=== PATIENT | male | born 1975 | race Caucasian/White ===

== ENCOUNTER 2016-08-08 00:20 | Inpatient (IN) | payer OTHER ==
[2016-08-08 01:37] LABS: Benzodiazepine Urine Screen None Detected (None Detect)
--- NOTE | 2016-08-08 01:41 | ED ---
Jeri Johansen Erika, scribed for Guerrero Bustillos MD on 08/08/16 at 0057 . Substance Abuse/Use - HPI Summary HPI Summary: Patient is a 40-year-old male BIBA to the ED with a CC of overdose. Per EMS, 911 was called with a CC of nosebleed. When they arrived, pt was apneic and surrounded by vomit. Pt had a pulse. Pt's O2 sats were around 40%, so they bagged him and got him up to 90%. Pt was not intubated. They state they first gave him 2 of nasal narcan, which did not affect symptoms. Pt was then given 2 of IV narcan, and within seconds became alert and oriented. When asked which drugs he took, pt reports "I'm not sure" and states "I drank." LEVEL 5 CAVEAT - PT UNABLE TO PROVIDE HISTORY - History Of Current Complaint Stated Complaint: OVERDOSE/UNRESPONSIVE Time Seen by Provider: 08/08/16 00:42 Hx Obtained From: Patient, EMS Hx From Patient Unobtainable Due To: Extremis Severity Initially: Severe Severity Currently: Moderate Aggravating Factor(s): Nothing Alleviating Factor(s): Other - Narcan by EMS Associated Signs And Symptoms: Vomiting - Allergies/Home Medications Allergies/Adverse Reactions: Allergies Allergy/AdvReac Type Severity Reaction Status Date / Time Erythromycin Allergy Severe Hives Verified 12/05/14 13:52 Penicillins Allergy Severe Hives Verified 12/05/14 13:52 PMH/Surg Hx/FS Hx/Imm Hx Infectious Disease History: Denies: Hx Clostridium Difficile, Hx Hepatitis, Hx Human Immunodeficiency Virus (HIV), Hx of Known/Suspected MRSA, Hx Shingles, Hx Tuberculosis, Traveled Outside the [place] in Last 30 Days - Family History Family History: LEVEL 5 CAVEAT - PT UNABLE TO PROVIDE HISTORY - Social History Alcohol Use: Rare Hx Substance Use: Yes - Unkown type Hx Tobacco Use: Yes Smoking Status (MU): Light Every Day Tobacco Smoker Type: Cigarettes, eCigarettes Amount Used/How Often: 1/2 ppd Review of Systems - ROS Summary Review of Systems Summary: LEVEL 5 CAVEAT - PT UNABLE TO PROVIDE HISTORY Positive: Epistaxis Respiratory: Other - Apneic on EMS arrival Positive: Vomiting All Other Systems Reviewed And Are Negative: No Physical Exam Triage Information Reviewed: Yes Vital Signs On Initial Exam: Temp Pulse Resp BP Pulse Ox 98.0 F 138 18 132/100 92 08/08/16 01:19 08/08/16 00:48 08/08/16 00:48 08/08/16 00:48 08/08/16 00:48 Vital Signs Reviewed: Yes Completion Of Physical Exam Limited Due To: Level 5 - PT UNABLE TO PROVIDE HISTORY Appearance: Positive: No Pain Distress - thrashing about intermittently Skin: Positive: Warm Head/Face: Positive: Normal Head/Face Inspection Eyes: Positive: JV Neck: Positive: Supple Respiratory/Lung Sounds: Positive: Breath Sounds Present Cardiovascular: Positive: Normal Abdomen Description: Positive: Nontender, Soft Bowel Sounds: Positive: Present Neurological: Positive: Sensory/Motor Intact Psychiatric: Positive: Anxious Diagnostics - Vital Signs Vital Signs Temp Pulse Resp BP Pulse Ox 08/08/16 01:19 98.0 F 08/08/16 00:48 9.0 F 138 18 132/100 92 - Laboratory Lab Results: Lab Results 08/08/16 Range/Units 01:00 Urine Opiates Screen Presumptive positive H (None Detect) Ur Barbiturates Screen None detected (None Detect) Ur Phencyclidine Scrn None detected (None Detect) Ur Amphetamines Screen Presumptive positive H (None Detect) U Benzodiazepines Scrn None detected (None Detect) Urine Cocaine Screen None detected (None Detect) U Cannabinoids Screen None detected (None Detect) Result Diagrams: 08/08/16 06:10 Lab Statement: Any lab studies that have been ordered have been reviewed, and results considered in the medical decision making process. - Radiology CXR Xray Interpretation: Positive (See Comments) - Bilateral fluffy infiltrates Radiology Interpretation Completed By: ED Physician - EKG 00:27 Cardiac Rate: Tachycardia - at 129 bpm EKG Rhythm: Sinus Tachycardia Re-Evaluation - Re-Evaluation First Eval Re-Evaluation Time: 02:30 Change: Unchanged Second Eval Re-Evaluation Time: 04:00 Change: Worse Comment: Difficulty breathing Course/Dx - Course Assessment/Plan: A 40 y/o M is BIBA to the ED with opioid overdose. Pt was treated with Narcan by EMS. Urine toxicology reveals positive opiates and amphetamines. Serum alcohol <10. Pt is moaning throughout his observation in the ED, and is given Ativan. Pt had difficulty breathing in the ED, so CXR and blood gas were ordered. CXR shows bilateral fluffy infiltrates. Blood gas reveals pO2 of 44. Patient care discussed with Dr. Romero who admits pt for further work up and management. - Diagnoses Provider Diagnoses: Opiate overdose, Respiratory failure - Physician Notifications Discussed Care Of Patient With: Dr. Romero (hospitalist) at 04:33 - agrees to admit Instructed by Provider To: Admit As Inpatient - Critical Care Time Critical Care Time: 75-104 min Discharge - Discharge Plan Condition: Critical Disposition: ADMITTED TO [facility] documentation as recorded by the Jeri hudson Erika accurately reflects the service I personally performed and the decisions made by me, Guerrero Bustillos MD.
[2016-08-08 02:12] LABS: Alcohol < 10 mg/dL (<10)
[2016-08-08] MEDS ORDERED: LORazepam INJ* 2 MG/ML 1 ML VIAL IM ONE (03:29)
[2016-08-08] MEDS ORDERED: LORazepam INJ* 2 MG/ML 1 ML VIAL IV PUSH ONE ×2 (03:56→04:28)
[2016-08-08 04:23] LABS: PCO2 Arterial 44 mmHg (35-45)
[2016-08-08] MEDS ORDERED: Furosemide IV* 10 MG/ML 10 ML VIAL (100 MG) IV ONE (04:28)
[2016-08-08] MEDS ORDERED: cefTRIAXone(*) 1 GM in NS 0.9% 50 ML* 50 ML IVPB ONE (04:29)
[2016-08-08] MEDS ORDERED: Furosemide IV* 10 MG/ML VIAL (40 MG) ONE (04:51)
[2016-08-08] MEDS ORDERED: Ondansetron INJ* 2 MG/ML VIAL IV PRN (05:23)
[2016-08-08] MEDS ORDERED: LORazepam INJ* 2 MG/ML 1 ML VIAL IV PUSH PRN ×2 (05:25→05:26)
[2016-08-08] MEDS ORDERED: NS 0.9% 1000 ML* 1,000 ML IV ONE (05:30)
[2016-08-08 05:54] LABS: Acetaminophen < 15 mcg/mL; Salicylate < 2.50 mg/dL (<30)
[2016-08-08] MEDS ORDERED: Piperac/Tazob 3.375 gm in NS* 3.375 GM/100 ML BAG IVPB SCH (06:00)
[2016-08-08 06:34] LABS: Albumin 4.2 g/dL (3.2-5.2); BUN/Creatinine Ratio 17.1 (8-20); Calcium 9.3 mg/dL (8.6-10.3); EGFR African American 78.6 (>60); EGFR Non-African American 61.1 (>60); Globulin 3.3 g/dL (2-4); Hematocrit 39 % (42-52); Hemoglobin 12.9 g/dl (14.0-18.0); Mean Corpuscular HGB Conc 34 g/dl (31-36); Mean Corpuscular Hemoglobin 30 pg (27-31); Mean Corpuscular Volume 88 fL (80-94); Mean Platelet Volume 8 um3 (7.4-10.4); Potassium 4.2 mmol/L (3.5-5.0); Red Blood Count 4.36 10^6/ul (4.0-5.4); Red Cell Distribution Width 14 % (10.5-15); Total Bilirubin 0.4 mg/dL (0.2-1.0); Total Protein 7.5 g/dL (6.4-8.9); White Blood Count 15.1 10^3/ul (3.5-10.8)
--- NOTE | 2016-08-08 07:26 | RAD ---
INDICATION: Shortness of breath. COMPARISON: None. TECHNIQUE: Single AP portable view of the chest was obtained. FINDINGS: Image quality is compromised due to the relative inferiority of a portable chest x-ray. The heart and mediastinum exhibit normal size and contour. There are widespread patchy infiltrates worse overlying the right lung than the left. There is no lobar consolidation. The costophrenic angles are adequately defined. There is no evidence of a large pleural effusion. Visualized bones are normal for the patient's age. IMPRESSION: Diffuse patchy density could be seen in multifocal pneumonia, pneumonitis, drug toxicity or less likely cardiogenic pulmonary edema.
[2016-08-08] MEDS ORDERED: Haloperidol INJ IV/IM* 5 MG/ML AMP IM ONE (07:45)
[2016-08-08] MEDS ORDERED: diPHENhydraMINE IV* 50 MG/ML 1 ml VIAL (BENADRYL) IM ONE (07:45)
[2016-08-08] MEDS: Clindamycin 600 MG IVPREMIX(* 600 MG/50 ML SDV IV SCH ×4 (08:05→22:30)
--- NOTE | 2016-08-08 08:13 | HP ---
HISTORY AND PHYSICAL: DATE OF ADMISSION: 08/08/16 TIME OF EVALUATION: 0500. PRIMARY CARE PHYSICIAN: The patient does not have a primary care physician. CHIEF COMPLAINT: Overdose, and shortness of breath. HISTORY OF PRESENT ILLNESS: The patient is altered and unable to answer questions or follow commands appropriately. The history is obtained from the ER and the EMS staff, which states that 911 was called with a complaint of a nosebleed. When they arrived, the patient was apneic and surrounded by vomit. He had a pulse. His oxygen saturation around 40%. They bagged him and got his pulse ox up to 90. He was not intubated. They give him two of nasal Narcan, which did not improve his symptoms . He was then given two of IV Narcan, and he became alert and oriented. When asked which drugs he took, the patient reports "I am not sure" and states "I drank." The patient, throughout his ER course, was moaning and agitated and very restless. He was also complaining of difficulty breathing. Chest x-ray showed abnormalities. The ER obtained an ABG and he had to be held by several security officers to get this. The patient in the emergency room was given a total of 2 mg of Ativan, 40 mg of Lasix, a gram of ceftriaxone, and was referred to the hospitalist service for further evaluation. PAST MEDICAL HISTORY: Unknown; presumed history of drug use, polysubstance abuse. MEDICATIONS: Unknown. FAMILY HISTORY: Unable to obtain. SOCIAL HISTORY: Unable to obtain. REVIEW OF SYSTEMS: Unable to obtain. PHYSICAL EXAMINATION GENERAL: The patient is somnolent, poorly disheveled, and awakes with verbal stimuli. VITAL SIGNS: Temp is 98, pulse rate 134, respiratory rate 26, oxygen saturation 95% on 10 L, blood pressure 145/65. HEENT: The patient is uncooperative and combative; unable to assess his pupils or his oropharynx adequately. NECK: Supple. He has several scabs and erythematous areas over his face. CARDIAC: Tachycardia, soft, systolic murmur. RESPIRATORY: Diminished breath sounds with bilateral rhonchi. ABDOMEN: Soft. EXTREMITIES: No edema. The patient with multiple healed scab wounds on his lower extremities and upper extremities. NEUROLOGIC: The patient unable to answer questions appropriately or follow commands. He is moving all extremities. DIAGNOSTIC STUDIES/LAB DATA: Blood gas 7.35, PCO2 44, PO2 44 on room air. Toxicology positive for opioids, positive for amphetamines, and negative for alcohol. Chest x-ray - wet read shows prominent interstitial fluffy markings, more prominent on the right. ASSESSMENT AND PLAN: This is a 40-year-old male with presumed overdose of IV heroin, who was found hypoxic and unresponsive in vomit upon EMS arrival, now more alert, but still restless, agitated, and unable to answer questions appropriately. 1. Overdose. Assessment: Presumed IV heroin overdose; has responded to Narcan. He is more alert, but now appears hypoxic and requiring 10 L. I suspect this is aspiration pneumonitis based on being found in his vomit. His chest x-ray is abnormal and he is hypoxic, in mild respiratory distress. I am waiting for labs to further evaluate him. In the meantime, I think continuing him on antibiotic for aspiration pneumonia is warranted. We will switch him over to Clindamycin. We will start him on fluids, give him a liter bolus, then admit him to the ICU. Will also start him on Ativan as needed. We can place a social work consult as well. Check a Tylenol and salicylate level. We will keep n.p.o. for now in the setting of agitation and altered mental status. Once he becomes more lucid, we will need to further investigate his past medical history and the medications he takes on a routine basis. 2. FEN. As mentioned, keep him n.p.o. with IV fluid. 3. DVT prophylaxis. Due to unable to assess his mental status appropriately and concern for a potential fall in the setting of his being found unresponsive and unable to get a CAT scan due to his restlessness, I would hold off on getting him anticoagulation and just place him on SCDs. 4. Code status. Full code. TIME SPENT: Greater than 40 minutes were spent doing the history and physical, more than half the time was in direct patient contact. [id number]/[facility] #: [id number] SCOTTY
[2016-08-08 08:47] LABS: PCO2 Arterial 37 mmHg (35-45)
[2016-08-08] MEDS: NS 0.9% 1000 ML* 1,000 ML IV SCH ×2 (08:49→20:01)
--- NOTE | 2016-08-08 18:05 | PN ---
Subjective Date of Service: 08/08/16 Interval History: Patient seen early afternoon. No one present in the room, GF was there earlier, said she suspected he had restarted using heroin and meth behind her back. Patient easily arousable, seemed aggravated to be bothered, would nod off after 3-4 seconds. Says he "ingested something", could not tell me what or what route he used. Denies chest pain or SOB. Family History: Unchanged from Admission Social History: Unchanged from Admission Past Medical History: Unchanged from Admission Objective Active Medications: Sodium Chloride (Ns 0.9% 1000 Ml*) 1,000 mls @ 150 mls/hr IV PER RATE [facility] Last Admin: 08/08/16 08:49 Dose: 150 mls/hr Clindamycin HCl/Dextrose (Cleocin 600 Mg Ivpremix(*) Sdv) 600 mg in 50 mls @ 100 mls/hr IV Q8H [facility] Last Admin: 08/08/16 15:29 Dose: 100 mls/hr Lorazepam (Ativan Inj*) 1 mg IV PUSH Q2H PRN PRN Reason: AGITATION Ondansetron HCl (Zofran Inj*) 4 mg IV Q4H PRN PRN Reason: NAUSEA/VOMITING Vital Signs 08/08/16 08/08/16 08/08/16 06:00 07:00 08:01 Temperature Pulse Rate 140 138 Respiratory Rate Blood Pressure 117/69 (mmHg) O2 Sat by Pulse 84 94 Oximetry 08/08/16 08/08/16 08/08/16 12:19 13:00 14:00 Temperature 100.2 F Pulse Rate 99 98 95 Respiratory 19 18 16 Rate Blood Pressure 102/52 91/49 99/52 (mmHg) O2 Sat by Pulse 96 97 98 Oximetry 08/08/16 08/08/16 08/08/16 15:00 15:39 16:00 Temperature 100.2 F Pulse Rate 93 93 Respiratory 16 16 15 Rate Blood Pressure 110/54 102/47 (mmHg) O2 Sat by Pulse 97 96 Oximetry Oxygen Devices in Use Now: Nasal Cannula - 4L Appearance: Middle-aged, M, laying in bed asleep Eyes: No Scleral Icterus Ears/Nose/Mouth/Throat: - - Dry MM Neck: NL Appearance and Movements; NL JVP Respiratory: Symmetrical Chest Expansion and Respiratory Effort, - - RLL rales Cardiovascular: NL Sounds; No Murmurs; No JVD, RRR Abdominal: NL Sounds; No Tenderness; No Distention Lymphatic: No Cervical Adenopathy Extremities: No Edema Neurological: - - Lethargic, no focal deficits Result Diagrams: 08/08/16 06:10 08/08/16 06:10 Additional Lab and Data: Lab Results 08/08/16 Range/Units 01:00 Urine Opiates Screen Presumptive positive H (None Detect) Ur Barbiturates Screen None detected (None Detect) Ur Phencyclidine Scrn None detected (None Detect) Ur Amphetamines Screen Presumptive positive H (None Detect) U Benzodiazepines Scrn None detected (None Detect) Urine Cocaine Screen None detected (None Detect) U Cannabinoids Screen None detected (None Detect) Microbiology and Other Data: Microbiology 08/08/16 11:40 Nasal Screen MRSA (PCR)(BERTIN) - Final Nasal Mrsa Negative Assess/Plan/Problems-Billing Assessment: Likely heroin and/or methamphetamine overdose and aspiration pneumonia in a 40 yo M - Patient Problems (1) Heroin overdose Current Visit: Yes Comment: Continue supportive care. Patient is protecting his airway, hold further narcan. Continue NPO, IVF until he is more lucid. (2) Aspiration pneumonia Current Visit: Yes Comment: vs pneumonitis. Continue Clindamycin. Wean O2 as able. (3) DVT prophylaxis Current Visit: Yes Comment: SCDs Status and Disposition: Inpatient
[2016-08-08 20:24] LABS: Urine Bilirubin Negative (Negative); Urine Glucose Negative (Negative); Urine Nitrite Negative (Negative)
[2016-08-09] MEDS: NS 0.9% 1000 ML* 1,000 ML IV SCH (02:32)
[2016-08-09 05:14] LABS: Hematocrit 35 % (42-52); Hemoglobin 11.8 g/dl (14.0-18.0); Mean Corpuscular HGB Conc 34 g/dl (31-36); Mean Corpuscular Hemoglobin 30 pg (27-31); Mean Corpuscular Volume 88 fL (80-94); Mean Platelet Volume 8 um3 (7.4-10.4); Red Blood Count 3.94 10^6/ul (4.0-5.4); Red Cell Distribution Width 14 % (10.5-15); White Blood Count 9.4 10^3/ul (3.5-10.8)
[2016-08-09 05:25] LABS: BUN/Creatinine Ratio 20.8 (8-20); Calcium 8.9 mg/dL (8.6-10.3); EGFR Non-African American 119.7 (>60); Potassium 3.5 mmol/L (3.5-5.0)
[2016-08-09] MEDS: Clindamycin 600 MG IVPREMIX(* 600 MG/50 ML SDV IV SCH ×3 (06:05→22:44)
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
--- NOTE | 2016-08-09 11:57 | RAD ---
HISTORY: Confusion, recent head trauma and hemorrhage COMPARISONS: None available at the time of dictation TECHNIQUE: Multiple contiguous axial CT scans were obtained of the head without intravenous contrast. FINDINGS: HEMORRHAGE/INFARCT: There is no hemorrhage or acute infarct. MASSES/SHIFT: There is no mass or shift. EXTRA-AXIAL SPACES: There are no extra-axial fluid collections. SULCI AND VENTRICLES: The sulci and ventricles are normal in size and position for the patient's stated age. CEREBRUM: There are no focal parenchymal abnormalities. BRAINSTEM: There are no focal parenchymal abnormalities. CEREBELLUM: There are no focal parenchymal abnormalities. VESSELS: The vessels are grossly normal. PARANASAL SINUSES: There is mucosal thickening of the maxillary sinuses bilaterally. ORBITS: The orbits are unremarkable. BONES AND SOFT TISSUE: No bone or soft tissue abnormalities are noted. OTHER: None IMPRESSION: NO ACUTE INTRACRANIAL PATHOLOGY.
[2016-08-10] MEDS: Clindamycin 600 MG IVPREMIX(* 600 MG/50 ML SDV IV SCH ×2 (05:38→14:03)
[2016-08-10 09:18] VITALS: BP 119/79
--- NOTE | 2016-08-11 13:30 | DS ---
DISCHARGE SUMMARY: DATE OF ADMISSION: 08/08/16 DATE OF DISCHARGE: 08/10/16 PRIMARY CARE PROVIDER: None. The patient declines to establish primary care provider at this time. PRIMARY DIAGNOSES: 1. Hypoxic respiratory failure secondary to IV drug overdose. 2. Aspiration pneumonia. SECONDARY DIAGNOSIS: IV drug use/polysubstance abuse. MEDICATIONS ON DISCHARGE: Clindamycin 300 mg 3 times a day for 7 additional days. HISTORY OF PRESENT ILLNESS AND HOSPITAL COURSE: This is a 40-year-old man, past medical history as outlined in the history of present illness on the day of admission including polysubstance abuse, who was found by EMS on the ground, O2 saturation 40%, improved with Narcan, BVM respirations. Chest x-ray on presentation was concerning for multifocal pneumonia and sepsis, IV fluids and antibiotics, ultimately narrowed to clindamycin. Remained afebrile for 48 hours prior to his discharge. On the day of discharge, the patient was ambulatory around the unit. His lungs were clear to auscultation on room air, had no complaints. The patient was seen in conjunction with Social Work; however, declined any assistance. Extensive time was spent with this author and the patient outlying my concern for potential relapse as this is the second time he has been admitted to the hospital, last at [facility], with loss of consciousness and what sounds like aspiration pneumonia or pneumonitis. The patient is hesitant to identify IV drug use as a current problem, unfortunately. The patient does not want to establish primary care provider at this time. Reasons to return to the hospital including, but not limited to, worsening of symptoms, shortness of breath, chest pain, nausea, vomiting, lightheadedness, fevers of any kind, diarrhea, inability to obtain or tolerate his medications discussed, the patient acknowledged understanding. TIME SPENT: Greater than 45 minutes was spent on the discharge of the patient, greater than half was spent [id number] with the patient. [id number]/[facility] #: [id number] SCOTTY
--- NOTE | 2016-10-27 14:55 | ED ---
INasreen Adam, scribed for Keaton Boss MD on 08/08/16 at 0750 . Progress - Progress Note Progress Note: Called to room. Pt was becoming extremely agitated and removed his own IV. Stomping feet. Said he could not feel feet. Repeating questions. Impaired cognition. Room air saturation 85%. Applying supplemental O2. Sedating pt to allow for adequate oxygenation and continuous IV placement. Repeat ABG to assess for acidosis. Re-Evaluation - Re-Evaluation First Eval Re-Evaluation Time: 07:47 Change: Unchanged Comment: Patient ambulating unsafely, self harming feet, and yelling. Second Eval Comment: Difficulty breathing Course/Dx - Diagnoses Provider Diagnoses: Heroin overdose, Aspiration pneumonia The documentation as recorded by the bonifacioibNasreen manzo Adam accurately reflects the service I personally performed and the decisions made by me, Keaton Boss MD.
== END 2016-08-10 15:00 | disposition home or self-care (01) | DRG 816 ==
LOC: ED 00:20 → EDHOLD 05:23 → ICU 10:54 → MED 08-09 18:06
PROVIDERS: ADMIT Pediatrics; ATTEND Internal Medicine
DX: T40.1X1A Poisoning by heroin, accidental (unintentional), initial encounter (principal); J96.01 Acute respiratory failure with hypoxia; J69.0 Pneumonitis due to inhalation of food and vomit; F19.10 Other psychoactive substance abuse, uncomplicated; Y92.9 Unspecified place or not applicable; X58.XXXA Exposure to other specified factors, initial encounter
CPT/HCPCS: 36415; 36600; 70450; 71010; 80048; 80053; 80307; 80320; 80329; 81003; 82803; 85025; 87040; 87641; 93005; 94760; 99285; G0480; J0696; J1200; J1630; J1940; J2060

== ENCOUNTER 2017-10-31 09:29 | Emergency (ER) | payer OTHER ==
[2017-10-31 09:46] VITALS: BP 143/100
--- NOTE | 2017-10-31 10:19 | UC ---
Doris Johansen Nilda, scribed for Anju Stovall MD on 10/31/17 at 1019 . Dental HPI - HPI Summary HPI Summary: This patient is a 42 year old M presenting to [facility] with a chief complaint of constant right sided facial swelling and pain secondary to upper right dental infection since yesterday. The patient rates the pain 3/10 in severity. Symptoms aggravated by nothing and alleviated by generic Midol taken [employer]. Patient denies fever, chills, N/V, and ear drainage. Allergies to erythromycin and penicillin (hives, throat closes). Pt states he has had 9 other teeth pulled for frequent tooth infections. Pt has not called her dentist. No difficulty swallowing, intraoral edema Patients medication reviewed this visit. - History of Current Complaint Chief Complaint: UCGeneralIllness Stated Complaint: SWOLLEN FACE Time Seen by Provider: 10/31/17 09:55 Hx Obtained From: Patient Onset/Duration: Sudden Onset, Lasting Days, Still Present Severity: Mild Pain Intensity: 3 Pain Scale Used: 0-10 Numeric Aggravating Factor(s): Nothing Alleviating Factor(s): OTC Meds Related History: Swelling, Other - denies fever, chills, N/V, and ear drainage - Allergies/Home Medications Allergies/Adverse Reactions: Allergies Allergy/AdvReac Type Severity Reaction Status Date / Time erythromycin base Allergy Swelling Verified 10/31/17 09:39 Of Face,Lips,& Throat Penicillins Allergy Swelling Verified 10/31/17 09:39 Of Face,Lips,& Throat Home Medications: Home Medications Acetaminophen/Pamabrom [Midol Caplet] 2 tab PO Q6HR PRN 10/31/17 [History Confirmed 10/31/17] PMH/Surg Hx/FS Hx/Imm Hx Previously Healthy: Yes - Surgical History Surgical History: Yes Surgery Procedure, Year, and Place: crani 04/2016 unknown exact surgery. Dental surgery (removed 9 teeth) 2018 - Family History Known Family History: Negative: Diabetes Family History: LEVEL 5 CAVEAT - PT UNABLE TO PROVIDE HISTORY - Social History Occupation: Unemployed Lives: Alone Alcohol Use: Rare Alcohol Amount: "socially" Substance Use Type: None Substance Use Comment - Amount & Last Used: Pt states he "only sometimes used to smoke marijuana" but no longer Smoking Status (MU): Heavy Every Day Tobacco Smoker Type: Cigarettes Amount Used/How Often: 1/2 ppd Household Exposure Type: Cigarettes - Immunization History Most Recent Influenza Vaccination: never Most Recent Tetanus Shot: unknown Most Recent Pneumonia Vaccination: never Review of Systems Constitutional: Negative Skin: Other - right facial swelling ENT: Dental Pain, Other - negative ear drainage Gastrointestinal: Negative All Other Systems Reviewed And Are Negative: Yes Physical Exam Triage Information Reviewed: Yes Appearance: Well-Appearing, No Pain Distress, Well-Nourished Vital Signs: Initial Vital Signs Temp 98.8 F 10/31/17 09:41 Pulse 95 10/31/17 09:41 Resp 18 10/31/17 09:41 BP 143/100 10/31/17 09:41 Pulse Ox 96 10/31/17 09:41 Vital Signs Reviewed: Yes Eye Exam: Normal Eyes: Positive: Conjunctiva Clear ENT Exam: Normal ENT: Positive: Normal ENT inspection, Hearing grossly normal, Pharynx normal, TMs normal, Other - right facial edema, no fluctuance, no erythema, mild warmth Dental: Positive: Other: - #4 broken and large cavity + erythema and tenderness , no fluctuance Neck exam: Normal Neck: Positive: Supple, Nontender, No Lymphadenopathy Respiratory Exam: Normal Respiratory: Positive: Chest non-tender, Lungs clear, Normal breath sounds, No respiratory distress, No accessory muscle use Cardiovascular Exam: Normal Cardiovascular: Positive: RRR, No Murmur Abdominal Exam: Normal Abdomen Description: Positive: Nontender, No Organomegaly Bowel Sounds: Positive: Present Musculoskeletal Exam: Normal Neurological Exam: Normal Psychological Exam: Normal Skin Exam: Normal Dental Complaint Course/Dx - Course Course Of Treatment: Blood pressure noted and patient informed to follow up with PCP. Pt with poor dentition, cavity and abscess #4. facial edema. Rx clinda. motrin/apap. pt has dentist - instructed follow=up. return precautions discussed - Differential Dx/Diagnosis Differential Diagnosis/Dx: Dental Abscess Provider Diagnoses: dental abscess, facial edema Discharge - Sign-Out/Discharge Documenting (check all that apply): Discharge - Discharge Plan Condition: Stable Disposition: HOME Prescriptions: Acetaminophen TAB* [Tylenol TAB*] 650 mg PO Q6H PRN #30 tab PRN Reason: Pain Clindamycin Cap(NF) [Clindamycin Cap 300 mg Cap(NF)] 300 mg PO Q8HR #30 cap Ibuprofen TAB* [Motrin TAB* 600 MG] 600 mg PO Q6H PRN #30 tab PRN Reason: Pain Patient Education Materials: Dental Abscess (ED) Referrals: No Primary Care Phys,NOPCP [Primary Care Provider] - Additional Instructions: - Stay well hydrated. Drink plenty of non-alcoholic, non-caffinated beverage - Take antibiotics as prescribed until gone - Okay to alternate ibuprofen (Advil, Motrin) and Tylenol every 3 hours for pain. Take with food. Do NOT take for more than 4-5 days - Swish and spit with warm salt water, 2-3 times - Contact your dentist to schedule a follow-up appointment. If you develop increased pain, swelling, tongue swelling, difficulty breathing or other concerns you should go to the emergency department. - Billing Disposition and Condition Condition: STABLE Disposition: HOME The documentation as recorded by the Doris hudson Nilda accurately reflects the service I personally performed and the decisions made by me, Anju Stovall MD.
== END 2017-10-31 10:35 | disposition home or self-care (01) ==
LOC: UCEAST 09:29
DX: K04.7 Periapical abscess without sinus (principal); R60.0 Localized edema; Z88.1 Allergy status to other antibiotic agents; Z88.0 Allergy status to penicillin; F17.210 Nicotine dependence, cigarettes, uncomplicated
CPT/HCPCS: 99212; G0463

== ENCOUNTER 2018-05-06 18:51 | Emergency (ER) | payer OTHER ==
[2018-05-06 19:08] VITALS: BP 139/67
--- NOTE | 2018-05-06 19:13 | UC ---
Hand/Wrist HPI - HPI Summary HPI Summary: 42 yo male presents with LEFT wrist pain, redness, and swelling. He tells me that about 3 days ago he was carrying a box that had a metal edge and the metal punctured his left wrist - didn't think much of it at the time. Since then he has developed swelling, redness, and increased pain to the area. He has been taking ibuprofen and tylenol for pain with no relief. Thinks his last tetanus was within the last 2-3 years. Denies fever, chills. - History Of Current Complaint Chief Complaint: UCUpperExtremity Stated Complaint: wrist complaint Time Seen by Provider: 05/06/18 19:13 Hx Obtained From: Patient Onset/Duration: Gradual Onset Severity Initially: Moderate Severity Currently: Severe Pain Intensity: 9 Pain Scale Used: 0-10 Numeric - Allergies/Home Medications Allergies/Adverse Reactions: Allergies Allergy/AdvReac Type Severity Reaction Status Date / Time erythromycin base Allergy Swelling Verified 05/06/18 19:08 Of Face,Lips,& Throat Penicillins Allergy Swelling Verified 05/06/18 19:08 Of Face,Lips,& Throat PMH/Surg Hx/FS Hx/Imm Hx - Additional Past Medical History Additional PMH: None - Surgical History Surgical History: Yes Surgery Procedure, Year, and Place: crani 04/2016 unknown exact surgery. Dental surgery (removed 9 teeth) 2018 - Family History Known Family History: Negative: Diabetes - Social History Lives: With Family Alcohol Use: Rare Alcohol Amount: "socially" Substance Use Type: None Substance Use Comment - Amount & Last Used: Pt states he "only sometimes used to smoke marijuana" but no longer Smoking Status (MU): Heavy Every Day Tobacco Smoker Type: Cigarettes Amount Used/How Often: 1/2 ppd Household Exposure Type: Cigarettes - Immunization History Most Recent Influenza Vaccination: never Most Recent Tetanus Shot: unknown Most Recent Pneumonia Vaccination: never Review of Systems Constitutional: Negative Skin: Other - Left wrist pain, redness, swelling Respiratory: Negative Cardiovascular: Negative Neurovascular: Negative Musculoskeletal: Negative Neurological: Negative Psychological: Negative All Other Systems Reviewed And Are Negative: Yes Physical Exam - Summary Physical Exam Summary: GENERAL: NAD. WDWN. No pain distress. SKIN: Left wrist: ulnar aspect with 5.0cm area of erythema and mild edema extending proximally on forearm. Mild warmth. Severe TTP. No induration. No streaking, bleeding, or drainage. NECK: Supple. Nontender. No lymphadenopathy. CHEST: No accessory muscle use. Breathing comfortably and in no distress. CV: Pulses intact. Cap refill <2seconds MSK: FROM with mild pain. NEURO: Alert. PSYCH: Age appropriate behavior. Triage Information Reviewed: Yes Vital Signs: Initial Vital Signs Temp 98 F 05/06/18 19:03 Pulse 103 05/06/18 19:03 Resp 18 05/06/18 19:03 BP 139/67 05/06/18 19:03 Pulse Ox 97 05/06/18 19:03 Vital Signs Reviewed: Yes Hand/Wrist Course/Dx - Course Course Of Treatment: Cellulitis of left wrist. He was given norco 5/325 and clindamycin 300mg in the clinic. Advised to f/u if symptoms do not improve. iSTOP Reference #: [id number] - Differential Dx/Diagnosis Provider Diagnoses: Cellulitis left wrist Discharge - Sign-Out/Discharge Documenting (check all that apply): Patient Departure All imaging exams completed and their final reports reviewed: No Studies - Discharge Plan Condition: Stable Disposition: HOME Prescriptions: Clindamycin Cap(NF) [Clindamycin Cap 300 mg Cap(NF)] 300 mg PO TID #21 cap HYDROcodone/ACETAMIN 5-325 MG* [[place] 5-325 TAB*] 1 tab PO Q6H PRN #12 tab MDD 4 PRN Reason: Pain Patient Education Materials: Cellulitis (DC) Referrals: No Primary Care Phys,NOPCP [Primary Care Provider] - Additional Instructions: If you develop a fever, shortness of breath, chest pain, new or worsening symptoms - please call your PCP or go to the ED. Your blood pressure was mildly elevated at todays visit. Please see your primary provider within 4 weeks for recheck and re-evaluation. 1) Apply ice to your wrist to decreased pain and swelling 2) If you notice the redness and swelling increase - please be rechecked and do not wait - Billing Disposition and Condition Condition: STABLE Disposition: Home - Attestation Statements Provider Attestation: Per institutional requirements, I have reviewed the chart, however, I was not consulted specifically or made aware of this patient by the midlevel provider. I did not personally evaluate, interact with , or disposition this patient.
[2018-05-06] MEDS ORDERED: HYDROcodone/ACETAMIN 5-325 MG* 1 TAB PO ONE (19:25)
[2018-05-06] MEDS ORDERED: Clindamycin CAP* 150 MG PO ONE (19:25)
== END 2018-05-06 19:33 | disposition home or self-care (01) ==
LOC: UCEAST 18:51
DX: L03.114 Cellulitis of left upper limb (principal); F17.210 Nicotine dependence, cigarettes, uncomplicated; Z88.1 Allergy status to other antibiotic agents; Z88.0 Allergy status to penicillin
CPT/HCPCS: 99212; A9270-GY; G0463

== ENCOUNTER 2018-05-10 14:23 | Emergency (ER) | payer OTHER ==
[2018-05-10 14:56] VITALS: BP 144/80
--- NOTE | 2018-05-10 15:03 | UC ---
Skin Complaint HPI - HPI Summary HPI Summary: 42 y/o male presents to the urgent care c/o left wrist abscess for the past 6 days. Pt reports he had cellulitis about 1 months ago in [place] and was Tx w/ Clindamycin PO which resolved. Then about 6 days ago a new blister w/ redness developed in his left wrist. He was seen here at the clinic on 2017 and r w/ cellulitis and Rx same antibiotic. The next day wound opened w/ yellowish drainage and increase pain and now w/ a red rash going up the arm. Pt had decrease movement of left wrist. Pt states PMHX of Hep C, and denies drug abuse. Pt denies Hx of MRSA, fever, chest pain, abdominal pain, N/V/D. Pain is sharp /10, He took Tylenol PO at 1200N to alleviate symptoms. - History of Current Complaint Chief Complaint: UCSkin Time Seen by Provider: 05/10/18 15:00 Stated Complaint: WRIST PAIN Hx Obtained From: Patient Onset/Duration: Gradual Onset, Lasting Days - 5 days, Still Present, Worse Since - 2 days ago Skin Exposure Onset/Duration: Days Ago - 6 days Timing: Constant Onset Severity: Moderate Current Severity: Severe Pain Intensity: 4 Pain Scale Used: 0-10 Numeric Location: Discrete - left wrist Character: Swelling, Pain, Redness - q/ drainage, Raised - Allergy/Home Medications Allergies/Adverse Reactions: Allergies Allergy/AdvReac Type Severity Reaction Status Date / Time erythromycin base Allergy Swelling Verified 05/10/18 16:09 Of Face,Lips,& Throat Penicillins Allergy Swelling Verified 05/10/18 16:09 Of Face,Lips,& Throat Home Medications: Home Medications Acetaminophen TAB* [Tylenol TAB*] 500 mg PO Q6H PRN 05/10/18 [History Confirmed 05/10/18] Review of Systems Constitutional: Chills Skin: Other - left wrist abscess w/ purukent discharge and a red rash around it Eyes: Negative ENT: Negative Respiratory: Negative Cardiovascular: Negative Gastrointestinal: Negative Genitourinary: Negative Motor: Negative Neurovascular: Negative Musculoskeletal: Other: - left wrist pain s/p abscess Neurological: Negative Psychological: Negative Is Patient Immunocompromised?: No All Other Systems Reviewed And Are Negative: Yes PMH/Surg Hx/FS Hx/Imm Hx Previously Healthy: Yes Other History Of: Hepatitis C - Surgical History Surgical History: Yes Surgery Procedure, Year, and Place: crani 04/2016 unknown exact surgery. Dental surgery (removed 9 teeth) 2018 - Family History Known Family History: Positive: Cardiac Disease Negative: Diabetes Family History: LEVEL 5 CAVEAT - PT UNABLE TO PROVIDE HISTORY - Social History Occupation: Employed Full-time Lives: With Family Alcohol Use: None Alcohol Amount: "socially" Substance Use Type: None Substance Use Comment - Amount & Last Used: Pt states he "only sometimes used to smoke marijuana" but no longer Smoking Status (MU): Heavy Every Day Tobacco Smoker Type: Cigarettes Amount Used/How Often: 1/2 ppd Household Exposure Type: Cigarettes - Immunization History Most Recent Influenza Vaccination: never Most Recent Tetanus Shot: unknown Most Recent Pneumonia Vaccination: never Physical Exam - Summary Physical Exam Summary: Vital Signs Reviewed: Yes General: well developed, well nourished male sitting in the examining table w/o any apparent distress Eye Exam: Normal Eyes: Positive: Conjunctiva Clear - PERRLA, EOMI, fundi grossly normal ENT: Positive: Normal ENT inspection, Hearing grossly normal, Pharynx normal, TMs normal Neck: Positive: Supple, Nontender, No Lymphadenopathy Respiratory: Positive: Chest non-tender, Lungs clear, Normal breath sounds, No respiratory distress Cardiovascular: Positive: RRR, No Murmur, Pulses Normal, Brisk Capillary Refill Abdomen Description: Positive: Nontender, No Organomegaly, Soft. Negative: CVA Tenderness (R), CVA Tenderness (L) Bowel Sounds: Positive: Present Musculoskeletal: Positive: Strength Intact, ROM Intact, No Edema Neurological: Positive: Alert, Muscle Tone Normal Psychological Exam: Normal Skin: Positive: Left wrist ventral aspect w/ an erythematous pustule that is indurated and fluctuant, tender to palpation, swollen w/ openings draining purulent yellowish drainage, warm to touch about 3.0cm x 6.0cm in size, w/ erythematous streaks radiating to the left upper arm. decrease ROM of left wrist sensation is intact, capillary refill WNL, reflexes WNL Triage Information Reviewed: Yes Vital Signs: Initial Vital Signs Temp 97.9 F 05/10/18 14:50 Pulse 83 05/10/18 14:50 Resp 16 05/10/18 14:50 BP 144/80 05/10/18 14:50 Pulse Ox 98 05/10/18 14:50 Course/Dx - Course Course Of Treatment: 42 y/o male presents to the urgent care c/o left wrist abscess for the past 6 days. Pt reports he had cellulitis about 1 months ago in [place] and was Tx w/ Clindamycin PO which resolved. Then about 6 days ago a new blister w/ redness developed in his left wrist. He was seen here at the clinic on 05/06/2018 and r w/ cellulitis and Rx same antibiotic. The next day wound opened w/ yellowish drainage and increase pain and now w/ a red rash going up the arm. Pt had decrease movement of left wrist. Pt states PMHX of Hep C, and denies drug abuse. Pt denies Hx of MRSA, fever, chest pain, abdominal pain, N/V/D. Pain is sharp 8/10, He took Tylenol PO at 1200N to alleviate symptoms.Hx obtained. Pt w/ Left wrist ventral aspect w/ an erythematous pustule that is indurated and fluctuant, tender to palpation, swollen w/ openings draining purulent yellowish drainage, warm to touch about 3.0cm x 6.0cm in size, w/ erythematous streaks radiating to the left upper arm. decrease ROM of left wrist on examination. Pt is hemodynamically stable. I think Pt needs to go to the ER for IV antibiotics and further management. I discussed Pt's symptoms w/ Dr Stovall and she evaluated Pt and agreed pt needs a higher level of care. I explained the Pt the need fo IV antibiotics and the improtance to go to the [facility]. Pt offered Ambulance transfer. Pt understood and agreed w/ plan of care and he stated he has a ride who will take him there. I called [facility] and discussed Pt's symptoms w/ OTIS Mccoy who accepted the patient. Pt left clinic hemodynamically stable and ambulating, A&OX3 - Differential Diagnoses - Skin Complaint Differential Diagnoses: Abscess, Cellulitis, Contact Dermatitis, MRSA, Other - IV drug abuse, osteomyelitis - Diagnoses Provider Diagnoses: 1- left wrist abscess. 2- Elevated BP w/o Hx of HTN Discharge - Sign-Out/Discharge Documenting (check all that apply): Patient Departure - D/C w/ highly recommendation to go to the [facility] for further evaluation and treatment All imaging exams completed and their final reports reviewed: No Studies - Discharge Plan Condition: Stable Disposition: HOME-RECOMMEND TO ED Patient Education Materials: Abscess (ED) Referrals: [facility] [Outside] Additional Instructions: I think you need a higher level or care for your presenting symptoms. I highly recommend you to go to the ER for further evaluation and treatment. The risks of not going can be , sepsis,osteomyelitis etc. I spoke to the ER attending OTIS Mccoy . They are expecting you. - Billing Disposition and Condition Condition: STABLE Disposition: Home-Recommend to ED - Attestation Statements Provider Attestation: I was available for consult. This patient was seen by the SHANEL. The patient was not presented to, seen by, or examined by me. -Verónica
== END 2018-05-10 15:34 | disposition home health service (06) ==
LOC: UCEAST 14:23
DX: L02.414 Cutaneous abscess of left upper limb (principal); R03.0 Elevated blood-pressure reading, without diagnosis of hypertension; F17.210 Nicotine dependence, cigarettes, uncomplicated
CPT/HCPCS: 99212; G0463

== ENCOUNTER 2018-05-10 16:05 | Emergency (ER) | payer OTHER ==
[2018-05-10] MEDS ORDERED: HYDROmorphone INJ* 1 MG/ML CARPUJECT SYRINGE IV ONE (16:23)
[2018-05-10] MEDS ORDERED: Vancomycin(*) 1,000 MG in NS 0.9% 250 ML* 250 ML IVPB ONE (16:23)
--- NOTE | 2018-05-10 16:26 | ED ---
Skin Complaint - HPI Summary HPI Summary: Patient is a 42 y/o M w/ c/o abscess on his left wrist. He states he had cellulitis at his left forearm a month ago and was treated with clindamycin in [place]. He reports formation of the abscess on his left wrist occurred a week ago and became painful four days ago. He was seen at [facility] that day, but they did not drain his abscess due to its proximity to his wrist. He states that he stabbed the abscess with a razor blade after this and was having pus drainage out of two spots over the past few days. Patient denies pain with movement of fingers but notes moving wrist is painful. He has been taking Tylenol with some relief in pain. Last dosage taken at 1100 today. On triage, pain is rated 8/10. Home medications and allergies are reviewed. - History of Current Complaint Chief Complaint: EDRashSkinAbscess Time Seen by Provider: 05/10/18 16:14 Stated Complaint: WRIST SWELLING/POSS INFECTION Hx Obtained From: Patient Onset/Duration: Started Weeks Ago - onset a week ago, Still Present Skin Exposure Onset/Duration: Weeks Ago - onset a week ago Timing: Constant, Lasting Weeks - onset a week ago Current Severity: Severe - 8/10 Pain Intensity: 8 Pain Scale Used: 0-10 Numeric - 8/10 Skin Location: Discrete - left wrist Character: Swelling, Redness, Painful Aggravating Symptom(s): Other: - movement of wrist Alleviating Symptom(s): OTC Meds - tylenol Associated Signs & Symptoms: Drainage - pus - Additional Pertinent History Primary Care Physician: ILDA - Allergy/Home Medications Allergies/Adverse Reactions: Allergies Allergy/AdvReac Type Severity Reaction Status Date / Time erythromycin base Allergy Swelling Verified 05/10/18 16:09 Of Face,Lips,& Throat Penicillins Allergy Swelling Verified 05/10/18 16:09 Of Face,Lips,& Throat PMH/Surg Hx/FS Hx/Imm Hx GI History: Reports: Other GI Disorders - constipation, takes routine stool softeners Neurological History: Reports: Other Neuro Impairments/Disorders - recent tbi from [facility] apr 2016 - Surgical History Surgery Procedure, Year, and Place: crani 04/2016 unknown exact surgery. Dental surgery (removed 9 teeth) 2018 Hx Anesthesia Reactions: No Infectious Disease History: No Infectious Disease History: Reports: Hx Hepatitis - Hep C + Denies: Hx Clostridium Difficile, Hx Human Immunodeficiency Virus (HIV), Hx of Known/Suspected MRSA, Hx Shingles, Hx Tuberculosis, Traveled Outside the [place] in Last 30 Days - Family History Known Family History: Positive: Cardiac Disease Negative: Diabetes - Social History Alcohol Use: None Alcohol Amount: "socially" Hx Substance Use: Yes - Unkown type Substance Use Type: Reports: None Substance Use Comment - Amount & Last Used: Pt states he "only sometimes used to smoke marijuana" but no longer Hx Tobacco Use: Yes Smoking Status (MU): Heavy Every Day Tobacco Smoker Type: Cigarettes Amount Used/How Often: 1/2 ppd Review of Systems Positive: Other - left wrist pain, no pain in fingers Positive: Other - abscess at left wrist All Other Systems Reviewed And Are Negative: Yes Physical Exam - Summary Physical Exam Summary: Appearance: The patient is well-nourished in no acute distress and in no acute pain. Skin: The skin is warm and dry and skin color reflects adequate perfusion. Indurated swelling over volar left wrist with drainage in two places. The area is 1.5 cm by 4 cm with proximal erythema of 4-5 cm. HEENT: The head is normocephalic and atraumatic. The pupils are equal and reactive. The conjunctivae are clear and without drainage. Nares are patent and without drainage. Mouth reveals moist mucous membranes and the throat is without erythema and exudate. The external ears are intact. The ear canals are patent and without drainage. The tympanic membranes are intact. Neck: The neck is supple with full range of motion and non-tender. There are no carotid bruits. There is no neck vein distension. Respiratory: Chest is non-tender. Lungs are clear to auscultation and breath sounds are symmetrical and equal. Cardiovascular: Heart is regular rate and rhythm. There is no murmur or rub auscultated. There is no peripheral edema and pulses are symmetrical and equal. Abdomen: The abdomen is soft and non-tender. There are normal bowel sounds heard in all four quadrants and there is no organomegaly palpated. Musculoskeletal: There is no back tenderness noted. Extremities are non-tender with full range of motion. There is good capillary refill. There is no peripheral edema or calf tenderness elicited. Neurological: Patient is alert and oriented to person, place and time. The patient has symmetrical motor strength in all four extremities. Cranial nerves are grossly intact. Deep tendon reflexes are symmetrical and equal in all four extremities. Psychiatric: The patient has an appropriate affect and does not exhibit any anxiety or depression. Triage Information Reviewed: Yes Vital Signs On Initial Exam: Initial Vitals Temp Pulse Resp BP Pulse Ox 96.5 F 95 16 149/86 98 05/10/18 16:09 05/10/18 16:09 05/10/18 16:09 05/10/18 16:09 05/10/18 16:09 Vital Signs Reviewed: Yes Diagnostics - Vital Signs Vital Signs Temp Pulse Resp BP Pulse Ox 05/10/18 16:09 96.5 F 95 16 149/86 98 - Laboratory Result Diagrams: 05/10/18 16:33 Lab Statement: Any lab studies that have been ordered have been reviewed, and results considered in the medical decision making process. - Ultrasound No standard instances Ultrasound Interpretation: Positive (See Comments) Ultrasound Interpretation Completed By: Radiologist - LEFT WRIST SOFT TISSUE US IMPRESSIONS: extensive infiltratives soft tissue edema without visualized loculated fluid collection to indicate abscess. This report was reviewed by ed physician. Re-Evaluation - Re-Evaluation First Eval Re-Evaluation Time: 19:10 Comment: Discussed results of imaging and labs. Patient will be discharged to home. Treatment plan was discussed, patient advised to follow up with PCP in 1- 2 days. Course/Dx - Course Course Of Treatment: Mr. Jefferson presented with a clindamycin failure of a cellulitis/abscess on his left volar wrist. He's been on clindamycin for 5 days. He had an indurated swelling over his for left wrist that was draining in a couple of areas. There was mild erythema proximal to it with no streaking. He had no sign of tenosynovitis. Ultrasound showed no evidence for abscess. He was given IV fluids and vancomycin here and laboratory work was unremarkable aside from a mildly elevated CRP. I recommended that we change him to Septra at this point and continue outpatient treatment with close follow- up. - Diagnoses Provider Diagnoses: Cellulitis of left arm Discharge - Sign-Out/Discharge Documenting (check all that apply): Patient Departure - discharge - Discharge Plan Condition: Stable Disposition: HOME Prescriptions: HYDROcodone/ACETAMIN 5-325 MG* [[place] 5-325 TAB*] 1 tab PO Q6H PRN #20 tab MDD 4 PRN Reason: Pain Sulfamethox/Trimethoprim DS* [Bactrim DS 800/160 TAB*] 1 tab PO BID #20 tab Patient Education Materials: Cellulitis (ED) Referrals: [facility] [Outside] - 2 Days Additional Instructions: RETURN TO ED FOR ANY NEW OR WORSENING SYMPTOMS. FOLLOW UP WITH PRIMARY CARE PHYSICIAN IN 1-2 DAYS. - Billing Disposition and Condition Condition: STABLE Disposition: Home - Attestation Statements Document Initiated by Scribe: Yes Documenting Scribe: Jose Noyola Provider For Whom Scribe is Documenting (Include Credential): Vern Meyers MD Scribe Attestation: Jose Johansen , scribed for Vern Meyers MD on 05/10/18 at 2100. Scribe Documentation Reviewed: Yes Provider Attestation: The documentation as recorded by the Jose hudson accurately reflects the service I personally performed and the decisions made by me, Vern Meyers MD
[2018-05-10] MEDS ORDERED: HYDROmorphone INJ1* 1 MG/ML SYRINGE IV ONE (16:45)
[2018-05-10 16:47] LABS: ABS Basophils 0.1 10^3/ul (0-0.2); ABS Eosinophils 0.3 10^3/ul (0-0.6); ABS Lymphocytes 1.4 10^3/ul (1.0-4.8); ABS Monocytes 0.6 10^3/ul (0-0.8); ABS Neutrophils 4.1 10^3/ul (1.5-7.7); ABS Nucleated RBC 0 10^3/ul; Hematocrit 42 % (42-52); Hemoglobin 14.3 g/dl (14.0-18.0); Mean Corpuscular HGB Conc 34 g/dl (31-36); Mean Corpuscular Hemoglobin 30 pg (27-31); Mean Corpuscular Volume 89 fL (80-94); Mean Platelet Volume 7.8 um3 (7.4-10.4); Nucleated Red Blood Cells % 0; Platelet Count 358 10^3/ul (150-450); Red Blood Count 4.72 10^6/ul (4.00-5.40); Red Cell Distribution Width 14 % (10.5-15); White Blood Count 6.5 10^3/ul (3.5-10.8)
--- NOTE | 2018-05-10 17:41 | RAD ---
Indication: LEFT wrist swelling and redness. Assess for potential abscess. Comparison: No relevant prior exams available on the [facility] PACS for comparison.. Technique: Musculoskeletal ultrasound. Ultrasound volar aspect LEFT wrist corresponding with the region of soft tissue swelling.. REPORT AND IMPRESSION: #. Extensive infiltrative soft tissue edema without visualized loculated fluid collection to indicate abscess.
[2018-05-10 19:32] VITALS: BP 149/92
== END 2018-05-10 19:32 | disposition home or self-care (01) ==
LOC: ED 16:05
DX: L03.114 Cellulitis of left upper limb (principal); F17.210 Nicotine dependence, cigarettes, uncomplicated
CPT/HCPCS: 36415; 85025; 86140; 96361; 96374; 96375; 99282; J1170; J3370